=== PATIENT | female | born 1985 | race Caucasian/White ===

== ENCOUNTER 2017-01-27 21:59 | Emergency (ER) | payer OTHER ==
[~2017-01-27 21:59] MED LIST: ACETAMINOPHEN; ALBUTEROL 0.5ML INH; BACTRIM DS TABL1 TA1 PO; BENADRYL; BUSPAR5 M1 PO; ESCITALOPRAM OX20 MG PO; KLONOPIN PO; KLONOPIN0.5 MG PO; LEVAQUIN750 MG PO; LEVOFLOXACIN500 MG PO; LOPRESSOR PO; LOSARTAN-HCTZ1 EAC2 PO; METOPROLOL SUCC25 MG PO; NORCO 5/325 TAB1 TAB PO; POTASSIUM CHLO20 ME1 PO; PRENATAL1 TA1; TOPAMAX PO; ULTRAM PO; ZITHROMAX500 MG PO; ZOLOFT PO
[2017-01-27 22:00] LABS: BASOPHIL# 0.1 X10e3 (0-0.3); BASOPHIL% 0.6 % (0-2.5); EOSINOPHIL# 0.2 X10e3 (0-0.7); EOSINOPHIL% 2.1 % (0.0-7.0); HEMATOCRIT 40.8 % (35.0-45.0); HEMOGLOBIN 13.7 gm/dL (12.0-16.0); LYMPHOCYTE# 2.4 X10e3 (1.0-3.5); LYMPHOCYTE% 25.4 % (17.0-45.0); MEAN CELL VOLUME 91.9 FL (83-96); MEAN CORPUSCULAR HEMOGLOBIN 30.9 PG (28-34); MEAN CORPUSCULAR HGB CONC 33.7 g/dL (30-36); MEAN PLATELET VOLUME 7.6 FL (6.5-11.5); MONOCYTE# 0.9 X10e3 (0-1.0); MONOCYTE% 9.4 % (3.0-12.0); NEUTROPHIL# 5.9 X10e3 (1.5-7.1); NEUTROPHIL% 62.5 % (40-75); PLATELET COUNT 274 X10e3 (140-420); RED BLOOD COUNT 4.44 X10e (3.90-5.30); RED CELL DISTRIBUTION WIDTH 13.6 % (11.0-15.5); WHITE BLOOD COUNT 9.4 X10e3 (4.0-10.5)
[2017-01-27 22:01] LABS: DIFF IND NO
[2017-01-27 22:24] LABS: ALBUMIN SERUM 3.9 g/dL (3.5-5.0); ALKALINE PHOSPHATASE 64 U/L (32-92); ALT (SGPT) 30 U/L (10-40); AST (SGOT) 29 U/L (10-42); BILIRUBIN, DIRECT 0.2 mg/dL (0.0-0.2); BILIRUBIN,INDIRECT 0.7 mg/dL (0.0-0.9); BILIRUBIN,TOTAL 0.9 mg/dL (0.2-2.0); BLOOD UREA NITROGEN 19 mg/dL (9-23); BUN/CREATININE RATIO 23.75; CALCIUM SERUM 9.1 mg/dL (8.4-10.2); CARBON DIOXIDE 25 mmol/L (22-31); CHLORIDE 103 mmol/L (100-111); CREATININE SERUM 0.8 mg/dL (0.6-1.4); GLOM FILT RATE Estimated 97.6 mL/min (>60); GLUCOSE FASTING 82 mg/dL (70-110); SODIUM 136 mmol/L (135-145)
[2017-01-27 22:28] LABS: ALCOHOL BLOOD <5 mg/dL ([, 0])
[2017-01-27 22:35] LABS: AMPHETAMINE POS (NEG); BARBITURATES NEG (NEG); BENZODIAZEPINES POS (NEG); COCAINE NEG (NEG); MARIJUANA NEG (NEG); OPIATES NEG (NEG); TRICYCLIC ANTIDEPRESSANTS POS (NEG); U METHADONE NEG (NEG)
== END 2017-01-28 05:08 | disposition home or self-care (01) ==
LOC: CED 21:59
PROVIDERS: Emergency Medicine
DX: T42.4X3A Poisoning by benzodiazepines, assault, initial encounter (principal); E87.6 Hypokalemia; F19.10 Other psychoactive substance abuse, uncomplicated; I10 Essential (primary) hypertension; F41.9 Anxiety disorder, unspecified; F31.9 Bipolar disorder, unspecified; F17.210 Nicotine dependence, cigarettes, uncomplicated; Z88.0 Allergy status to penicillin; Z88.8 Allergy status to other drugs, medicaments and biological substances
CPT/HCPCS: 80048; 80076; 80307; 84703; 85025; 99283; G0480

== ENCOUNTER 2017-04-22 21:37 | Emergency (ER) | payer OTHER ==
[~2017-04-22] VITALS: Ht 167.6 cm; Wt 74.8 kg
--- NOTE | ~2017-04-22 | EKG ---
PATIENT: ANIYA MOTT UNIT #: [id number] Ventricular Rate: 96 BPM Atrial Rate: 96 BPM P-R Interval: 124 ms QRS Duration: 96 ms Q-T Interval: 412 ms QTC Calculation(Bezet): 520 ms P Coggon: 32 degrees Calculated R Coggon: 33 degrees Calculated T Coggon: 24 degrees Diagnosis Line: Normal sinus rhythm Diagnosis Line: Incomplete right bundle branch block Diagnosis Line: Prolonged QT Diagnosis Line: Abnormal ECG Diagnosis Line: When compared with ECG of 02-OCT-2016 07:47, Diagnosis Line: No significant change was found Diagnosis Line: Confirmed by AZAR MEI MD ([id number]) on Diagnosis Line: 04/23/2017 7:35:20 AM INTERPRETING MD: HAMIDA FIELD
--- NOTE | ~2017-04-22 | CR72 ---
[facility]. [facility] A Service of [facility] RADIOLOGY TEXT RESULTS PATIENT: ANIYA MOTT LOCATION: SED : 84 UNIT #: [id number] AGE: [address]: Hieu Silva MD SEX: F ORDER DR: [id number] [place] [id number] MR#: [id number] Acc #: [id number] NAME: ANIYA MOTT : 1985 SEX: F STUDY DATE/TIME: 04/22/2017 23:10 UNIT: SED ROOM: STUDY DESCRIPTION: CR Chest Single View Portable Attending Physician: Hieu Silva M.D. Ordering Physician: Hieu Silva M.D. Primary Care Physician: Arnaldo Renae M.D. MEDICAL IMAGING REPORT This report is preliminary unless electronic signature is present. EXAM Portable chest. INDICATIONS Shortness of air and dizziness tonight. PROCEDURE Frontal view chest. COMPARISON 10/01/2016 FINDINGS Heart size is stable. No new dense consolidation. The left costophrenic angle has been excluded from the field of view but no definitive evidence for pleural fluid. No pneumothorax. IMPRESSION No active process. No change from 10/01/2016. Dictated by... Heriberto Jasmine M.D. THIS IS AN ELECTRONICALLY VERIFIED REPORT Heriberto Jasmine M.D. at 04/27/2017 8:32 AM EED/bd TD: 04/23/2017 06:35 JOB #: [id number] MEDICAL IMAGING REPORT Page 1 of 1
[2017-04-22] MEDS ORDERED: WATER PILL (22:06)
[2017-04-22] MEDS ORDERED: METOPROLOL (22:06)
[2017-04-22 22:21] LABS: BASOPHIL# 0.1 X10e3 (0-0.3); BASOPHIL% 0.4 % (0-2.5); EOSINOPHIL# 0.2 X10e3 (0-0.7); EOSINOPHIL% 1.3 % (0.0-7.0); HEMATOCRIT 40.8 % (35.0-45.0); HEMOGLOBIN 14.4 gm/dL (12.0-16.0); LYMPHOCYTE# 2.7 X10e3 (1.0-3.5); LYMPHOCYTE% 22.7 % (17.0-45.0); MEAN CELL VOLUME 88.6 FL (83-96); MEAN CORPUSCULAR HEMOGLOBIN 31.3 PG (28-34); MEAN CORPUSCULAR HGB CONC 35.3 g/dL (30-36); MEAN PLATELET VOLUME 6.4 FL (6.5-11.5); MONOCYTE# 0.9 X10e3 (0-1.0); MONOCYTE% 7.8 % (3.0-12.0); NEUTROPHIL% 67.8 % (40-75); PLATELET COUNT 212 X10e3 (140-420); RED CELL DISTRIBUTION WIDTH 14.3 % (11.0-15.5); WHITE BLOOD COUNT 11.9 X10e3 (4.0-10.5)
[2017-04-22 22:22] LABS: DIFF IND NO
[2017-04-22 22:38] LABS: ACETAMINOPHEN <10 ug/mL; ALCOHOL BLOOD <5 mg/dL ([, 0]); ALKALINE PHOSPHATASE 65 U/L (32-92); ALT (SGPT) 25 U/L (10-40); AST (SGOT) 30 U/L (10-42); BILIRUBIN,TOTAL 0.5 mg/dL (0.2-2.0); BLOOD UREA NITROGEN 11 mg/dL (9-23); BUN/CREATININE RATIO 15.71; CALCIUM SERUM 8.8 mg/dL (8.4-10.2); CARBON DIOXIDE 27 mmol/L (22-31); CHLORIDE 97 mmol/L (100-111); CREATININE SERUM 0.7 mg/dL (0.6-1.4); GLOM FILT RATE Estimated 114.6 mL/min (>60); GLUCOSE FASTING 103 mg/dL (70-110); POTASSIUM 3.2 mmol/L (3.5-5.1); SALICYLATE <4.0 mg/dL; SODIUM 136 mmol/L (135-145)
[2017-04-22 22:46] LABS: POC - CKMB 1.5 ng/mL (0.0-7.9); POC - TROPONIN <0.05 ng/mL (<=0.05)
[2017-04-22 23:34] LABS: URINE SOURCE CLEAN CATCH
[2017-04-22 23:37] LABS: URINE APPEARANCE HAZY; URINE BILIRUBIN NEG (NEG); URINE BLOOD 1+ (NEG); URINE COLOR YELLOW; URINE GLUCOSE NEG (NORM); URINE KETONE NEG (NEG); URINE LEUKOCYTE ESTERASE NEG (NEG); URINE NITRATE POS (NEG); URINE PROTEIN 2+ (NEG); URINE SPECIFIC GRAVITY 1.015 (1.003-1.035); URINE UROBILINOGEN 0.2 MG/DL (NORM)
[2017-04-22 23:44] LABS: MICRO INDICATED? YES
[2017-04-22 23:45] LABS: CULTURE INDICATED? YES; URINE BACTERIA 3+ (NEG)
[2017-04-22 23:46] LABS: URINE MUCUS PRESENT; URINE SQUAMOUS EPITHELIAL CELL MODERATE /[HPF]
[2017-04-22 23:47] LABS: AMPHETAMINE NEG (NEG); BARBITURATES NEG (NEG); BENZODIAZEPINES NEG (NEG); COCAINE NEG (NEG); MARIJUANA NEG (NEG); OPIATES NEG (NEG); TRICYCLIC ANTIDEPRESSANTS NEG (NEG); U METHADONE NEG (NEG)
== END 2017-04-23 04:37 ==
LOC: SED 21:37 → CED 21:37 → SED 22:14
DX: F10.20 Alcohol dependence, uncomplicated (principal); R45.851 Suicidal ideations; N39.0 Urinary tract infection, site not specified; I10 Essential (primary) hypertension; F41.9 Anxiety disorder, unspecified; F17.200 Nicotine dependence, unspecified, uncomplicated; Z88.0 Allergy status to penicillin; Z88.8 Allergy status to other drugs, medicaments and biological substances
CPT/HCPCS: 36415; 71010; 80053; 80307; 81003; 82553; 84484; 84703; 85025; 87086; 87088; 87186; 93005; 96361; 96365; 96375; 99285; G0480; J2060; J3411; J3475

== ENCOUNTER 2017-04-23 | Inpatient (IN) | payer OTHER ==
[~2017-04-23] VITALS: Ht 172.7 cm; Wt 75.7 kg
[~2017-04-23] MED LIST changes: +METOPROLOL; +WATER PILL
--- NOTE | ~2017-04-23 | PN ---
Unit #: [id number] #: [id number] Patient: ANIYA MOTT [id number] [facility] [address] [place] [address] [id number] I MR#: [id number] NAME: ANIYA MOTT ROOM: [facility] Age: 31 Sex: F Admission Date: 04/23/2017 : 1985 Attending Physician: Gomez Talley M.D. Admitting Physician: Gomez Talley M.D. Primary Care Physician: Michel Gonzalez PROGRESS NOTES DATE 04/24/2017 DISCUSSION The patient is active within the therapeutic milieu. When seen today, she states that she has been instructed by CPS that she will need to complete a "30-day program" to regain custody of her children. Accordingly, I will ask for her 7th grade social studies teacher to see her regarding referral for residential treatment. Otherwise, the detox continues uneventfully, and she denies suicidal ideation. Dictated by... Gomez Talley M.D. CB/maksim TD: 04/24/2017 13:03 JOB #: [id number] CHRIS PROGRESS NOTES Page 1 of 1 X Gomez Talley MD X PROGRESS NOTE
--- NOTE | ~2017-04-23 | CO ---
Unit #: [id number] #: [id number] Patient: ANIYA MOTT [id number] [place] [address] [id number] I MR#: [id number] NAME: ANIYA MOTT ROOM: [facility] Age: 31 Sex: F Admission Date: 04/23/2017 : 1985 Attending Physician: Gomez Talley M.D. Primary Care Physician: Cameron Cespedes M.D. Consultation Date: 04/26/2017 CONSULTATION REPORT HISTORY OF PRESENT ILLNESS Aniya had positive nitrites in her urine that was obtained at [facility] on 04/22/2017. She recently had a positive culture and sensitivity for E coli that showed susceptibility to Bactrim. She reports strong odor with her urine, pain with urination, and frequent urination, she reports going every hour at least and waking up frequently at night to urinate. She does not have any fever and she has not had any back pain. She has no other complaints. PHYSICAL EXAMINATION CARDIAC: Regular rate and rhythm. No murmurs, gallops, or rubs. RESPIRATORY: Clear to auscultation bilaterally. ABDOMEN: Bowel sounds positive in all quadrants. No abdominal tenderness to palpation. No CVA tenderness or flank pain. ASSESSMENT AND PLAN Urinary tract infection. We will begin Bactrim DS 1 tab p.o. b.i.d. x3 days. Please notify if symptoms are unresolved. Dictated by... Ravinder Baldwin/isrrael TD: 04/27/2017 00:30 JOB #: [id number] CONSULTATION REPORT Page 1 of 1 X DEMETRIO SILVA APRN X CONSULTATION REPORT
--- NOTE | ~2017-04-23 | PN ---
Unit #: [id number] #: [id number] Patient: ANIYA MOTT [id number] [facility] [address] [place] [address] [id number] I MR#: [id number] NAME: ANIYA MOTT ROOM: [facility] Age: 31 Sex: F Admission Date: 04/23/2017 : 1985 Attending Physician: Gomez Talley M.D. Admitting Physician: Gomez Talley M.D. Primary Care Physician: Michel Gonzalez PROGRESS NOTES DATE 04/25/2017 DISCUSSION The patient is abed today resting. She is complaining of a severe migraine headache. She reports that she does not generally suffer from these. I will order Excedrin migraine to address these symptoms. The patient's detox is otherwise an uneventful one. We continue to work towards this position. Dictated by... Gomez Talley M.D. CB/chance TD: 04/26/2017 00:33 JOB #: [id number] CHRIS PROGRESS NOTES Page 1 of 1 X Gomez Talley MD X PROGRESS NOTE
--- NOTE | ~2017-04-23 | HP ---
Unit #: [id number] #: [id number] Patient: ANIYA MOTT [id number] [place] [address] [id number] I MR#: [id number] NAME: ANIYA MOTT ROOM: P212 Age: 31 Sex: F Admission Date: 04/23/2017 : 1985 Attending Physician: Gomez Talley M.D. Admitting Physician: Gomez Talley M.D. Primary Care Physician: Cameron Cespedes M.D. HISTORY AND PHYSICAL HISTORY OF PRESENT ILLNESS Aniya is a 31-year-old female admitted on 04/23/[address] [place] [address] for detox from alcohol. PAST MEDICAL HISTORY 1. Hypertension. 2. Lipoma. PAST SURGICAL HISTORY 1. Lipoma removal from her right and left legs. 2. D and C times two. ALLERGIES Penicillin and doxycycline. SOCIAL HISTORY Smokes 1 pack of cigarettes daily. She drinks 1-1/2 pints of alcohol daily. No illegal drug use. She is currently and living with her parents. FAMILY HISTORY Noncontributory. REVIEW OF SYSTEMS CONSTITUTIONAL: No fever or chills. HEENT: Denies any sore throat, ear pain or runny nose. CARDIOVASCULAR: Denies chest pain, irregular heart rhythm or palpitations. CHEST: Denies shortness of breath or cough. No hemoptysis. GASTROINTESTINAL: Denies nausea, vomiting, diarrhea or chronic constipation. ENDOCRINE: Denies history of increased thirst or urination. No recent significant weight loss or gain. GENITOURINARY: Denies dysuria, frequency, or hematuria. SKIN: Denies any rashes. HEMATOLOGIC: Denies history of increased bleeding or bruising. MUSCULOSKELETAL: Denies any hot, swollen joints. No generalized muscle pain. NEUROLOGIC: Denies problems with vision or speech. No frequent, severe headaches. No numbness, tingling or weakness in any extremities. Denies loss of bladder or bowel control. CURRENT MEDICATIONS 1. Baclofen. Unit #: [id number] #: [id number] Patient: ANIYA MOTT 2. Lexapro. 3. Metoprolol. 4. Losartan/HCTZ. 5. Vitamin D. PHYSICAL EXAMINATION GENERAL: Alert, oriented, in no acute distress. VITAL SIGNS: Blood pressure 151/101, heart rate 71, respirations 16, temp 97.8. HEIGHT: 5 feet 8. WEIGHT: 167 pounds. SKIN: Warm and dry without rash or lesion. HEENT: Normocephalic. TMs not viewed. Oral and nasal passages clear. Conjunctivae clear. PERRLA. EOMs intact. NECK: Supple without lymphadenopathy or thyromegaly. HEART: Regular rate and rhythm without murmur. LUNGS: Clear. ABDOMEN: Soft, nontender, without masses or hepatosplenomegaly. : Not done. EXTREMITIES: No evidence of cyanosis, clubbing or edema. Moves all without focal deficit. NEUROLOGICAL: Grossly within normal limits. Cranial Nerves: II: Visual govea are intact. III, IV AND : Extraocular movements are intact. Pupils are equal, round and reactive to light. V: Facial sensation is grossly normal. VII: Facial movements and expression are normal. VIII: Auditory acuity grossly intact. IX, X: Uvula is midline. Phonation is normal. XI: Patient shrugs shoulders and turns head normally. XII: Tongue protrudes in the midline. Sensory and Motor Function: Sensory and motor sensation is grossly normal. Motor: moves all extremities well. Coordination: Gait is normal. Deep Tendon Reflexes: Intact. IMPRESSION 1. Psychiatric admission. 2. Hypertension. 3. Lipoma. RECOMMENDATIONS PSYCHIATRIC: Per psychiatrist. MEDICAL: No contraindication to participate in facility's activities. MEDICAL PROGNOSIS Good. MEDICAL CONDITION Stable. Dictated by... Ravinder Baldwin TD: 04/23/2017 21:31 Unit #: [id number] #: [id number] Patient: ANIYA MOTT JOB #: [id number] HISTORY AND PHYSICAL Page 1 of 1 X DEMETRIO SILVA APRN X HISTORY AND PHYSICAL
--- NOTE | ~2017-04-23 | PA ---
Unit #: [id number] #: [id number] Patient: ANIYA MOTT [id number] [facility] [address] [place] [address] [id number] I MR#: [id number] NAME: ANIYA MOTT ROOM: P212 Age: 31 Sex: F Admission Date: 04/23/2017 : 1985 Date of Assessment: 04/23/2017 Attending Physician: Gomez Talley M.D. Admitting Physician: Gomez Talley M.D. Primary Care Physician: Cameron Cespedes M.D. PSYCHIATRIC ASSESSMENT IDENTIFYING INFORMATION The patient is a 31-year-old white female admitted to the [address] [place] [address] for alcohol detox and suicidal ideation. CHIEF COMPLAINT None given. INFORMANT Chart. Patient cannot be aroused for interview. HISTORY OF PRESENT ILLNESS The patient is a 31-year-old white female admitted following an ingestion of alcohol and baclofen. The patient reports that her child was recently taken away and that she had "had enough." The patient states that she has been drinking vodka on a daily basis. She had reported positive suicidal ideation when evaluated in the emergency room. The patient is currently prescribed Lexapro. The patient denies prior psychiatric treatment apart from that ordered as a teenager at the [facility]. PAST PSYCHIATRIC HISTORY As above. PAST MEDICAL HISTORY The patient suffers from hypertension. MEDICATIONS 1. Lexapro. 2. Baclofen. 3. Metoprolol. 4. Losartan. 5. Vitamin D. ALLERGIES Penicillin and doxycycline. FAMILY HISTORY The patient reports an extensive family history of psychiatric illness and chemical dependence. SOCIAL HISTORY The patient lives with her father. SUBSTANCE ABUSE HISTORY As noted previously, she has been employed in the past as a [employer], but is Unit #: [id number] #: [id number] Patient: ANIYA MOTT presently unemployed. She recently lost custody of her child. MENTAL STATUS EXAMINATION Examination at this time reveals the patient to be a soundly sleeping white female, attempts to arouse her are unsuccessful. ASSETS AND LIABILITIES The patient's assets are to be assessed. Liabilities: Lack of resources. DIAGNOSTIC IMPRESSION 1. Alcohol use disorder. 2. Major depressive disorder, recurrent, moderate. 3. Status post ingestion of baclofen and alcohol. 4. Hypertension. TREATMENT PLAN The patient remains hospitalized for safety and stabilization. Routine detoxification protocol for alcohol has been initiated. Home medications are in place, and suicide precautions likewise have been ordered. ESTIMATED LENGTH OF STAY 3 to 5 days. The followup will take place in the intensive outpatient program provided by this facility and through the auspices of community mental health resources. Dictated by... Michel Gomez TD: 04/23/2017 15:01 JOB #: [id number] PSYCHIATRIC ASSESSMENT Page 1 of 1 X Gomez Talley MD X PSYCHIATRIC ASSESSMENT
--- NOTE | ~2017-04-23 | PN ---
Unit #: [id number] #: [id number] Patient: ANIYA MOTT [id number] [facility] [address] [place] [address] [id number] MR#: [id number] NAME: ANIYA MOTT ROOM: [facility] Age: 31 Sex: F Admission Date: 04/23/2017 : 1985 Attending Physician: Gomez Talley M.D. Admitting Physician: Gomez Talley M.D. Primary Care Physician: Michel Gonzalez PROGRESS NOTES DATE 04/27/2017 DISCUSSION The patient is in bright spirits today and is active within the therapeutic milieu. He headache seems to have resolved. The patient is today continuing to express her wish to go for residential chemical dependence treatment given the demands of Child Protective Services in order for her to regain custody of her child. I have spoken with the patient regarding the fact that the Child Protective Services may accept her participation in the intensive outpatient program as a suitable treatment for substance use in order to regain custody of her child. The patient seems open to this option. Dictated by... Gomez Talley M.D. CB/maksim TD: 04/27/2017 13:52 JOB #: [id number] CHRIS GARIBAY NOTES Page 1 of 1 X Gomez Talley MD X PROGRESS NOTE
--- NOTE | ~2017-04-23 | DS ---
Unit #: [id number] #: [id number] Patient: ANIYA MOTT [id number] [place] [address] [id number] I MR#: [id number] NAME: ANIYA MOTT ROOM: [facility] Age: 31 Sex: F Admission Date: 04/23/2017 : 1985 Discharge Date: 04/28/2017 Attending Physician: Gomez Talley M.D. Primary Care Physician: Cameron Cespedes M.D. DISCHARGE SUMMARY REASON FOR ADMISSION The patient is a 31-year-old white female, admitted to [address] [place] [address] for alcohol detox. HOSPITAL COURSE The patient was admitted to the [address] [place] [address] unit and continued on previously prescribed home medications including Lexapro, Motrin, vitamin D, Oretic, Cozaar, and Lopressor. She was begun on Bactrim for urinary tract infection on 04/26/2017 and will complete a course of that medication outside the hospital. The patient's detox was complete as of 04/28/2017 and she requested discharge. She was in agreeable to plan for intensive outpatient followup after attempts to arrange residential chemical dependency treatment were unsuccessful. FINAL DIAGNOSES Dysthymic disorder; alcohol use disorder; hypertension. DISPOSITION ON DISCHARGE The patient is discharged on the following medications: Lexapro 20 mg daily for depression, Cozaar 100 mg once daily for hypertension, metoprolol 50 mg b.i.d. for hypertension, Oretic 12.5 mg once daily for hypertension, vitamin D 50,000 units weekly for vitamin D insufficiency, ibuprofen 400 mg q.6 hours p.r.n. pain, Spectazole apply b.i.d. to affected area for rash, Bactrim DS one tablet b.i.d. for urinary tract infection. DISCHARGE INSTRUCTIONS No dietary or physical restrictions were placed upon the patient at the time of discharge. FOLLOWUP Followup will take place in the intensive outpatient program provided by this facility. PROGNOSIS The patient's prognosis is considered good. Dictated by... Gomez Talley M.D. CB/isrrael Unit #: [id number] #: [id number] Patient: ANIYA MOTT TD: 04/28/2017 14:21 JOB #: [id number] DISCHARGE SUMMARY Page 1 of 1 X Gomez Talley MD DISCHARGE SUMMARY
--- NOTE | ~2017-04-23 | PN ---
Unit #: [id number] #: [id number] Patient: ANIYA MOTT [id number] [facility] [address] [place] [address] [id number] I MR#: [id number] NAME: ANIYA MOTT ROOM: P212 Age: 31 Sex: F Admission Date: 04/23/2017 : 1985 Attending Physician: Gomez Talley M.D. Admitting Physician: Gomez Talley M.D. Primary Care Physician: Michel Gonzalez PROGRESS NOTES DATE 04/26/2017 DISCUSSION The patient continues to complain of severe headache and remains seclusive to room. She continues to complain of anxiety and symptoms of alcohol withdrawal. We continue to work towards disposition and I have told the patient to expect a.m. discharge. Dictated by... Gomez Talley M.D. CB/chance TD: 04/26/2017 22:32 JOB #: [id number] CHRIS PROGRESS NOTES Page 1 of 1 X Gomez Talley MD X PROGRESS NOTE
--- NOTE | ~2017-04-23 | CO ---
Unit #: [id number] #: [id number] Patient: ANIYA MOTT [id number] [facility] [address] [place] [address] [id number] I MR#: [id number] NAME: ANIYA MOTT ROOM: [facility] Age: 31 Sex: F Admission Date: 04/23/2017 : 1985 Attending Physician: Gomez Talley M.D. Primary Care Physician: Cameron Cespedes M.D. Requesting Physician: Gomez Talley M.D. CONSULTATION REPORT SUBJECTIVE "I have had hypertension for a long time and I take my medicines everyday but since I am detoxing it has gotten worse." OBJECTIVE Vital signs within normal limits except blood pressure varying significantly. Heart regular rate and rhythm. Lungs clear to auscultation bilaterally. ASSESSMENT Elevated blood pressure due to history of hypertension and current detox from alcohol. PLAN We will add clonidine 0.1 mg p.o. q. 6 hours as needed for blood pressure greater than or equal to 140/80 hold for heart rate less than 60. Dictated by... Ravinder Yu TD: 04/26/2017 03:05 JOB #: [id number] CONSULTATION REPORT Page 1 of 1 X Roxane Bach APR X CONSULTATION REPORT
--- NOTE | ~2017-04-23 | CO ---
Unit #: [id number] #: [id number] Patient: ANIYA MOTT [id number] [place] [address] [id number] I MR#: [id number] NAME: ANIYA MOTT ROOM: [facility] Age: 31 Sex: F Admission Date: 04/23/2017 : 1985 Attending Physician: Gomez Talley M.D. Primary Care Physician: Cameron Cespedes M.D. Consultation Date: 04/23/2017 CONSULTATION REPORT HISTORY OF PRESENT ILLNESS Aniya reports a history of rolling her ankle yesterday while she was walking, she slipped off the sidewalk and began having pain. She has not had any swelling, but her ankle does feel stiff. She does have pain when she walks. She would like to have Qasim bandage along with ice. She is currently receiving baclofen and Tylenol. She has not used any ice. The patient also has complaints of itching on the top of her right foot that started a couple of weeks ago. She initially had a red round spot that has gotten bigger since it started. She has no other complaints. PHYSICAL EXAMINATION CARDIAC: Regular rate and rhythm. No murmurs, gallops, or rubs. RESPIRATORY: Clear to auscultation bilaterally. MUSCULOSKELETAL: Limping with ambulation slightly. Normal pedal pulses. No pain with palpation of right ankle or lower leg. SKIN: Tinea corporis, dorsal aspect of right foot. ASSESSMENT AND PLAN 1. Ankle pain. We will begin ibuprofen 400 mg p.o. q.6 hours p.r.n. pain, ice t.i.d. for 15 minutes and apply an Qasim bandage if allowed on the unit. 2. Tinea corporis. We will begin econazole cream 1% apply b.i.d. for 3 weeks. Dictated by... Ravinder Baldwin/isrrael TD: 04/23/2017 23:47 JOB #: [id number] CONSULTATION REPORT Page 1 of 1 X RICARDO,DEMETRIO MONTES X CONSULTATION REPORT
== END 2017-04-28 14:40 | disposition home or self-care (01) | DRG 897 ==
LOC: P2S 05:20
PROC: HZ2ZZZZ Detoxification Services for Substance Abuse Treatment (ICD-10-PCS; principal; 2017-04-23)
DX: F10.20 Alcohol dependence, uncomplicated (principal); F33.1 Major depressive disorder, recurrent, moderate; I10 Essential (primary) hypertension; F17.210 Nicotine dependence, cigarettes, uncomplicated; B35.4 Tinea corporis; N39.0 Urinary tract infection, site not specified; Z88.0 Allergy status to penicillin; M25.579 Pain in unspecified ankle and joints of unspecified foot; R51 Headache; Y90.0 Blood alcohol level of less than 20 mg/100 ml

== ENCOUNTER 2017-04-29 12:10 | Emergency (ER) | payer OTHER ==
--- NOTE | ~2017-04-29 | CT4 ---
[facility] A Service of [facility] RADIOLOGY TEXT RESULTS PATIENT: ANIYA MOTT LOCATION: SED : 84 UNIT #: [id number] AGE: [address]: Kaushik Patel MD SEX: F ORDER DR: [id number] [address] [address] [id number] MR#: [id number] Acc #: [id number] NAME: ANIYA MOTT : 1985 SEX: F STUDY DATE/TIME: 04/29/2017 14:41 UNIT: SED ROOM: STUDY DESCRIPTION: CT Abd and Pelv Wo Cont Attending Physician: Kaushik Patel M.D. Ordering Physician: Kaushik Patel M.D. Primary Care Physician: Cameron Cespedes M.D. MEDICAL IMAGING REPORT This report is preliminary unless electronic signature is present. EXAM CT abdomen and pelvis INDICATION Low GFR. Nausea, vomiting, and diarrhea. TECHNIQUE CT abdomen and pelvis without contrast. Coronal and sagittal reconstructions were obtained. This CT exam was performed with one or more of the following radiation dose reduction techniques: Automatic exposure control, adjustment of mA and/or kV according to patient size, and iterative reconstruction. COMPARISON CT chest dated 06/27/2012. 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 This is unchanged from multiple prior studies. Noncontrast evaluation of the solid abdominal organs are within normal limits. There is no renal calculi. No hydronephrosis or ureteral calculi. The gallbladder is nondistended. The bowel is not dilated. There is occasional colonic diverticula. No diverticulitis. The abdominal aorta is normal in caliber. PELVIS: No pelvic mass. The uterus and ovaries are within normal limits. Bladder is unremarkable. No enlarged pelvic or inguinal lymph nodes. No acute osseous abnormalities. [facility] A Service [facility] RADIOLOGY TEXT RESULTS PATIENT: ANIYA MOTT LOCATION: SED : 84 UNIT #: [id number] AGE: [address]: Kaushik Patel MD SEX: F ORDER DR: IMPRESSION 1. No acute findings in the abdomen or pelvis. 2. No urinary calculi. Normal appendix. 3. Diverticulosis. 4. 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 Dictated by... Henri Syed M.D. THIS IS AN ELECTRONICALLY VERIFIED REPORT Henri Syed M.D. at 04/29/2017 8:08 PM FELI/livia TD: 04/29/2017 17:16 JOB #: [id number] MEDICAL IMAGING REPORT Page 1 of 1
[2017-04-29 12:36] LABS: URINE SOURCE CLEAN CATCH
[2017-04-29 12:39] LABS: URINE APPEARANCE CLEAR; URINE BLOOD NEG (NEG); URINE COLOR YELLOW; URINE GLUCOSE NEG (NORM); URINE KETONE NEG (NEG); URINE LEUKOCYTE ESTERASE NEG (NEG); URINE NITRATE NEG (NEG); URINE PH 7.5 (5-8); URINE PROTEIN TRACE (NEG); URINE SPECIFIC GRAVITY 1.015 (1.003-1.035)
[2017-04-29 12:45] LABS: BASOPHIL# 0.1 X10e3 (0-0.3); BASOPHIL% 0.5 % (0-2.5); EOSINOPHIL# 0.1 X10e3 (0-0.7); EOSINOPHIL% 0.7 % (0.0-7.0); HEMATOCRIT 50.5 % (35.0-45.0); HEMOGLOBIN 17.3 gm/dL (12.0-16.0); LYMPHOCYTE# 2.9 X10e3 (1.0-3.5); LYMPHOCYTE% 16.1 % (17.0-45.0); MEAN CELL VOLUME 90.3 FL (83-96); MEAN CORPUSCULAR HEMOGLOBIN 30.9 PG (28-34); MEAN CORPUSCULAR HGB CONC 34.2 g/dL (30-36); MONOCYTE% 11.3 % (3.0-12.0); NEUTROPHIL# 12.6 X10e3 (1.5-7.1); NEUTROPHIL% 71.4 % (40-75); PLATELET COUNT 374 X10e3 (140-420); RED BLOOD COUNT 5.59 X10e (3.90-5.30); RED CELL DISTRIBUTION WIDTH 15.2 % (11.0-15.5); WHITE BLOOD COUNT 17.7 X10e3 (4.0-10.5)
[2017-04-29 12:50] LABS: DIFF IND NO; MICRO INDICATED? YES; URINE BILIRUBIN NEG (NEG)
[2017-04-29 12:51] LABS: URINE BACTERIA 1+ (NEG); URINE RBC 0-2 /[HPF] (0-2); URINE SQUAMOUS EPITHELIAL CELL MANY /[HPF]
[2017-04-29 12:52] LABS: URINE GRANULAR CAST 0-2 /[HPF]; URINE HYALINE CAST 0-2 /[HPF]; URINE MUCUS PRESENT
[2017-04-29 13:08] LABS: ALKALINE PHOSPHATASE 65 U/L (32-92); ALT (SGPT) 33 U/L (10-40); AST (SGOT) 27 U/L (10-42); BILIRUBIN,TOTAL 0.6 mg/dL (0.2-2.0); BLOOD UREA NITROGEN 31 mg/dL (9-23); CALCIUM SERUM 10.2 mg/dL (8.4-10.2); CARBON DIOXIDE 28 mmol/L (22-31); CHLORIDE 90 mmol/L (100-111); GLOM FILT RATE Estimated 32.2 mL/min (>60); GLUCOSE FASTING 123 mg/dL (70-110); LIPASE 27 U/L (22-51); POTASSIUM 3.7 mmol/L (3.5-5.1); PROTEIN TOTAL SERUM 8.8 g/dL (6.0-8.3); SODIUM 133 mmol/L (135-145)
[2017-04-29 13:13] LABS: BILIRUBIN, DIRECT <0.1 mg/dL (0.0-0.2); BILIRUBIN,INDIRECT 0.5 mg/dL (0.0-0.9)
== END 2017-04-29 16:21 | disposition home or self-care (01) ==
LOC: SED 12:10
PROVIDERS: Emergency Medicine
DX: R10.9 Unspecified abdominal pain (principal); R11.2 Nausea with vomiting, unspecified; Z88.0 Allergy status to penicillin; Z88.8 Allergy status to other drugs, medicaments and biological substances
CPT/HCPCS: 36415; 74176; 80048; 80076; 81003; 83690; 84703; 85025; 96374; 96375; 96376; 99284; J2270; J2405

== ENCOUNTER 2017-05-04 21:33 | Emergency (ER) | payer OTHER ==
[~2017-05-04] VITALS: Ht 170.2 cm; Wt 77.1 kg
== END 2017-05-04 23:00 | disposition left against medical advice (07) ==
LOC: SED 21:33
DX: Z53.21 Procedure and treatment not carried out due to patient leaving prior to being seen by health care provider (principal)